=== PATIENT | female | born 1980 | race African-American/Black ===

== ENCOUNTER 2016-10-13 01:54 | Emergency (ER) | payer MEDICAID ==
[~2016-10-13] VITALS: Ht 154.9 cm; Wt 103.0 kg
[2016-10-13] MEDS ORDERED: ALBUTEROL2.5 MG/3 M INH (02:05)
--- NOTE | 2016-10-13 02:16 | Emergency Room Report ---
History of Present Illness General Chief Complaint: Abdominal Pain Source: Patient Present Illness HPI 36-year-old female presents to ED for evaluation of abdominal pain. Patient notes lower abdominal pain x4 days. Pain is pressure-like, 8/10, nonradiating. Patient states she might be . Has not had a period it nearly 2 months. States she did have her tubes tied. No dysuria or hematuria. Denies vaginal bleeding or discharge. Denies nausea or vomiting. No other aggravating relieving factors. Any other associated symptom Allergies: Coded Allergies: CODEINE (Verified Allergy, Unknown, 10/13/16) Patient History Past Medical History: asthma Past Surgical History: none Pertinent Family History: none Social History: Denies: alcohol use, drug use, smoking Last Menstrual Period: Aug Now: No Immunizations: UTD Reviewed Nursing Documentation: PMH: Agreed, PSxH: Agreed Nursing Documentation-PMH Hx Asthma: Yes Review of Systems All Other Systems: negative except mentioned in HPI Physical Exam Vital Signs Date Time Temp Pulse Resp B/P Pulse Ox O2 Delivery O2 Flow Rate FiO2 10/13/16 02:01 98.2 82 16 100/67 98 Room Air Sp02 EP Interpretation: reviewed, normal General Appearance: no apparent distress, alert, GCS 15, non-toxic, obese Head: normocephalic Eyes: bilateral eye PERRL, bilateral eye normal inspection ENT: normal ENT inspection Neck: normal inspection Respiratory: chest non-tender, lungs clear, normal breath sounds, speaking full sentences Cardiovascular #1: regular rate, rhythm, no edema Gastrointestinal: normal bowel sounds, soft, non-distended, no guarding, no rebound, tenderness - suprapubic Rectal: deferred Genitourinary: no CVA tenderness Musculoskeletal: normal inspection Neurologic: alert, oriented x3, responsive, motor strength/tone normal, sensory intact, speech normal Psychiatric: normal inspection Skin: normal inspection Lymphatic: normal inspection Medical Decision Making Diagnostic Impression: Primary Impression: Pelvic pain Additional Impression: Amenorrhea ER Course Hospital Course 36-year-old female presents ED complaining of suprapubic pain, no period X2 months Differential diagnosis includes-cystitis, ectopc , fibroids Clinical course Patient placed on stretcher. After initial history and physical I ordered labs , IV fluids, pelvic US Labs - no leukocytosis, electrolytes ok, LFTs normal, UA unremarkable, Upreg negative pelvic US shows no acute pathology Given improvement in symptoms and lack of acute findings, I believe patient can be safely discharged to home. Patient will followup with [facility] to further evaluate amenorrhea I feel this is a highly complex case requiring extensive working including EKG/ Rhythm strip, Xray/CT/US, Blood/urine lab work, repeat exams while in ED, and administration of strong opiates/narcotics for pain control, admission to hospital or close patient follow up. Diagnosis - amenorrhea, pelvic pain Stable and discharged to home. Followup with PMD. Return to ED if symptoms recur or worsen Labs Test 10/13/16 02:07 10/13/16 02:15 Urine Color Yellow Urine Appearance Clear Urine pH 6.5 (4.5-8.0) Urine Specific [place] 1.020 (1.005-1.035) Urine Protein Negative (NEGATIVE) Urine Glucose (UA) Negative (NEGATIVE) Urine Ketones 1+ (NEGATIVE) Urine Occult Blood 2+ (NEGATIVE) Urine Nitrite Negative (NEGATIVE) Urine Bilirubin Negative (NEGATIVE) Urine Urobilinogen 4 MG/DL (0.0-1.0) Urine Leukocyte Esterase Negative (NEGATIVE) Urine RBC 2-4 /HPF (0 - 2) Urine WBC 0-2 /HPF (0 - 2) Urine Squamous Epithelial Cells Many /LPF (NONE/OCC) Urine Bacteria Few /HPF (NONE) Urine HCG, Qualitative Negative White Blood Count 7.4 K/UL (4.8-10.8) Red Blood Count 4.79 M/UL (4.20-5.40) Hemoglobin 15.0 G/DL (12.0-16.0) Hematocrit 41.8 % (37.0-47.0) Mean Corpuscular Volume 87 FL (80-99) Mean Corpuscular Hemoglobin 31.3 PG (27.0-31.0) Mean Corpuscular Hemoglobin Concent 35.8 G/DL (32.0-36.0) Red Cell Distribution Width 13.9 % (11.6-14.8) Platelet Count 181 K/UL (150-450) Mean Platelet Volume 6.9 FL (6.5-10.1) Neutrophils (%) (Auto) 46.3 % (45.0-75.0) Lymphocytes (%) (Auto) 40.5 % (20.0-45.0) Monocytes (%) (Auto) 9.3 % (1.0-10.0) Eosinophils (%) (Auto) 2.8 % (0.0-3.0) Basophils (%) (Auto) 1.1 % (0.0-2.0) Sodium Level 136 mEQ/L (135-145) Potassium Level 3.7 mEQ/L (3.4-4.9) Chloride Level 97 mEQ/L (98-107) Carbon Dioxide Level 24 mEQ/L (20-30) Anion Gap 15 (5-15) Blood Urea Nitrogen 18 mg/dL (7-23) Creatinine 1.2 mg/dL (0.5-0.9) Estimat Glomerular Filtration Rate > 60 mL/min (>60) Glucose Level 103 mg/dL (74-106) Calcium Level 9.0 mg/dL (8.6-10.2) Total Bilirubin 0.5 mg/dL (0.0-1.2) Aspartate Amino Transf (AST/SGOT) 16 U/L (5-40) Alanine Aminotransferase (ALT/SGPT) 14 U/L (3-33) Alkaline Phosphatase 92 U/L (35-104) Total Protein 6.8 g/dL (6.6-8.7) Albumin 4.0 g/dL (3.5-5.2) Globulin 2.8 g/dL Albumin/Globulin Ratio 1.4 (1.0-2.7) Lipase 52 U/L (< 60) Human Chorionic Gonadotropin, Quant < 1 mIU/mL CT/MRI/US Diagnostic Results CT/MRI/US Diagnostic Results : Imaging Test Ordered: Pelvic US Impression no acute process Last Vital Signs Date Time Temp Pulse Resp B/P Pulse Ox O2 Delivery O2 Flow Rate FiO2 10/13/16 02:01 98.2 82 16 100/67 98 Room Air Status: improved Disposition: HOME, SELF-CARE Condition: Stable TITUS GLEZ M.D. Oct 13, 2016 02:16
[2016-10-13 02:26] VITALS: BP 100/67
[2016-10-13 02:27] LABS: BASOPHILS % (AUTO) 1.1 % (0.0-2.0); EOSINOPHILS % (AUTO) 2.8 % (0.0-3.0); LYMPHOCYTES % (AUTO) 40.5 % (20.0-45.0); MEAN CORPUSCULAR HEMOGLOBIN 31.3 PG (27.0-31.0); MEAN CORPUSCULAR HGB CONC 35.8 G/DL (32.0-36.0); MEAN CORPUSCULAR VOLUME 87 FL (80-99); MEAN PLATELET VOLUME 6.9 FL (6.5-10.1); MONOCYTES % (AUTO) 9.3 % (1.0-10.0); NEUTROPHILS % (AUTO) 46.3 % (45.0-75.0); PLATELET COUNT 181 K/UL (150-450); RED BLOOD COUNT 4.79 M/UL (4.20-5.40); RED CELL DISTRIBUTION WIDTH 13.9 % (11.6-14.8); WHITE BLOOD COUNT 7.4 K/UL (4.8-10.8)
[2016-10-13 02:30] LABS: KETONES,URINE 1+ (NEGATIVE); LEUKOCYTE ESTERASE ,URINE NEGATIVE (NEGATIVE); NITRITE,URINE NEGATIVE (NEGATIVE); PH,URINE 6.5 (4.5-8.0); PROTEIN,URINE NEGATIVE (NEGATIVE); UROBILINOGEN,URINE 4 MG/DL (0.0-1.0)
[2016-10-13 02:42] LABS: ALANINE AMINOTRANSFERASE 14 U/L (3-33); ALBUMIN/GLOBULIN RATIO 1.4 (1.0-2.7); ANION GAP 15 (5-15); ASPARTATE AMINO TRANSFERASE 16 U/L (5-40); CARBON DIOXIDE 24 mEQ/L (20-30); CHLORIDE 97 mEQ/L (98-107); CREATININE 1.2 mg/dL (0.5-0.9); GLOMERULAR FILTRATION RATE > 60 mL/min (>60); HEMOLYSIS 15; LIPASE 52 U/L (< 60); POTASSIUM 3.7 mEQ/L (3.4-4.9); SODIUM 136 mEQ/L (135-145); TOTAL PROTEIN 6.8 g/dL (6.6-8.7)
[2016-10-13 02:43] LABS: APPEARANCE,URINE CLEAR
[2016-10-13 02:45] LABS: BACTERIA,URINE FEW /HPF; SQUAMOUS EPITHELIAL CELL,UR MANY /LPF (NONE/OCC); WBC,URINE 0-2 /HPF (0 - 2)
[2016-10-13 04:38] VITALS: BP 102/77
[2016-10-13 05:00] VITALS: BP 102/77
--- NOTE | 2016-10-14 12:14 | Diagnostic Imaging Report ---
Indication:36-year-old female presenting with lower abdominal pain Technique: Grayscale and duplex Doppler imaging of the pelvis performed utilizing a transabdominal scan and endovaginal scan. Comparison: None Findings: The study is suboptimal. The patient was not scanned well. The uterus is noted and heterogeneous. The endometrium is not seen. There is a cystic focus in the lower uterine segment/cervix probably a cervical nabothian cyst. There is a questionable left ovarian cyst measuring about 1 cm . Recommend further evaluation in 6 weeks. The right ovary was not seen. There is no free fluid. The uterine measurement was only obtained on the transabdominal portion of the scan and measures 6.6 x 3.3 x 3.0 CM. Not confident of the left ovary measurement which was obtained at 6 x 1.3 x 1.7 cm. Impression: Very limited examination. The uterus appears small and heterogeneous and the endometrium not seen. Consider MR for further evaluation. Nonvisualization of the right ovary. Suggestion of a left ovarian cyst, not adequately imaged. Followup ultrasound recommended at 6 weeks
== END 2016-10-13 05:00 | disposition home or self-care (01) ==
LOC: EMR 02:16
DX: R10.2 Pelvic and perineal pain (principal); N91.2 Amenorrhea, unspecified; J45.909 Unspecified asthma, uncomplicated
CPT/HCPCS: 36415; 76856; 80053; 81003; 81025; 83690; 84702; 85025; 99284

== ENCOUNTER 2016-11-19 00:38 | Emergency (ER) | payer MEDICAID ==
[~2016-11-19] VITALS: Ht 157.5 cm; Wt 103.0 kg
[~2016-11-19 00:38] MED LIST: ALBUTEROL2.5 MG/3 M INH
--- NOTE | 2016-11-19 01:26 | Emergency Room Report ---
History of Present Illness General Chief Complaint: Pain Source: Patient Present Illness HPI This is a 36-year-old female with no past medical history. She presents with chief complaint of neck and throat pain. Onset yesterday. Denies any fever chills denies any nausea vomiting. It hurt to swallow but able to swallow. No drooling. There swelling to her neck. No fever or chills. No nausea no vomiting. Pain is 7/10. Allergies: Coded Allergies: CODEINE (Verified Allergy, Unknown, 10/13/16) Patient History Past Medical History: see triage record, old chart reviewed, asthma Past Surgical History: none Pertinent Family History: none Social History: Denies: smoking Last Menstrual Period: 3 WEEKS AGO Now: No Immunizations: other Reviewed Nursing Documentation: PMH: Agreed, PSxH: Agreed Nursing Documentation-PMH Hx Asthma: Yes Review of Systems Eye: Denies: blurred vision, eye pain ENT: Reports: throat pain, throat swelling, Denies: ear pain, nose congestion Respiratory: Denies: cough, shortness of breath Cardiovascular: Denies: chest pain, palpitations Gastrointestinal: Denies: abdominal pain, diarrhea, nausea, vomiting Musculoskeletal: Denies: back pain, joint pain Skin: Denies: rash Neurological: Denies: headache, numbness Endocrine: Denies: increased thirst, increased urine Hematologic/Lymphatic: Denies: easy bruising All Other Systems: negative except mentioned in HPI Physical Exam Vital Signs Date Time Temp Pulse Resp B/P Pulse Ox O2 Delivery O2 Flow Rate FiO2 11/19/16 00:39 97.9 83 18 106/68 98 Room Air vitals normal Sp02 EP Interpretation: reviewed, normal General Appearance: well appearing, no apparent distress, alert Head: normocephalic, atraumatic Eyes: bilateral eye EOMI, bilateral eye PERRL ENT: hearing grossly normal, normal pharynx, tonsillar swelling, pharyngeal erythema, other - no trismus. No peritonsillar abscess. No palpable mass or stone of the salivary ducts. Neck: full range of motion, supple, no meningismus, other - left side neck and submental swelling and tenderness. Respiratory: chest non-tender, lungs clear, normal breath sounds Cardiovascular #1: regular rate, rhythm, no murmur Gastrointestinal: normal bowel sounds, non tender, no mass, no organomegaly, no bruit, non-distended Musculoskeletal: back normal, gait/station normal, normal range of motion Psychiatric: mood/affect normal Skin: warm/dry Medical Decision Making Diagnostic Impression: Primary Impression: Pharyngitis, acute Qualified Codes: J02.9 - Acute pharyngitis, unspecified Additional Impression: UTI (urinary tract infection) Qualified Codes: N30.00 - Acute cystitis without hematuria ER Course Patient presents with sore throat and swelling of her neck. No evidence of peritonsillar abscess or retropharyngeal abscess. No obvious salivary duct stone or infection. She felt better now. We'll discharge home with antibiotics. Lab Results Impression labs unremarkable CT/MRI/US Diagnostic Results CT/MRI/US Diagnostic Results : Imaging Test Ordered: CT soft tissue neck Impression read by radiologist. Negative. Last Vital Signs Date Time Temp Pulse Resp B/P Pulse Ox O2 Delivery O2 Flow Rate FiO2 11/19/16 00:39 97.9 83 18 106/68 98 Room Air Status: improved Disposition: HOME, SELF-CARE Condition: Stable Scripts Ibuprofen* (MOTRIN*) 600 Mg Tablet 600 MG ORAL THREE TIMES A DAY, #30 TAB 0 Refills Prov: THU DOMÍNGUEZ M.D. 11/19/16 Amoxicillin* (AMOXIL*) 500 Mg Capsule 500 MG ORAL THREE TIMES A DAY, #21 CAP Prov: THU DOMÍNGUEZ M.D. 11/19/16 Referrals: NOT CHOSEN [facility]/,REFERRING (PCP) Additional Instructions: Followup with your DrSharron in 3-5 days. Increase fluids. Return if symptom worsen. THU DOMÍNGUEZ M.D. Nov 19, 2016 01:26
[2016-11-19] MEDS ORDERED: cefTRIAXone 1 GM in NS 55 ML IVPB ONE (01:30)
[2016-11-19] MEDS ORDERED: Ketorolac 30mg Inj IV ONE (01:30)
[2016-11-19 01:51] LABS: BASOPHILS % (AUTO) 1.4 % (0.0-2.0); LYMPHOCYTES % (AUTO) 42.2 % (20.0-45.0); MEAN CORPUSCULAR HEMOGLOBIN 30.7 PG (27.0-31.0); MEAN CORPUSCULAR HGB CONC 34.8 G/DL (32.0-36.0); MEAN CORPUSCULAR VOLUME 88 FL (80-99); MEAN PLATELET VOLUME 6.9 FL (6.5-10.1); MONOCYTES % (AUTO) 8.4 % (1.0-10.0); NEUTROPHILS % (AUTO) 44.9 % (45.0-75.0); PLATELET COUNT 209 K/UL (150-450); RED BLOOD COUNT 5.22 M/UL (4.20-5.40); RED CELL DISTRIBUTION WIDTH 13.8 % (11.6-14.8); WHITE BLOOD COUNT 7.8 K/UL (4.8-10.8)
[2016-11-19 01:57] LABS: APPEARANCE,URINE CLEAR; KETONES,URINE NEGATIVE (NEGATIVE); NITRITE,URINE NEGATIVE (NEGATIVE); PH,URINE 6 (4.5-8.0); PROTEIN,URINE NEGATIVE (NEGATIVE); UROBILINOGEN,URINE 1 MG/DL (0.0-1.0)
[2016-11-19 02:06] LABS: LEUKOCYTE ESTERASE ,URINE 1+ (NEGATIVE); SQUAMOUS EPITHELIAL CELL,UR MANY /LPF (NONE/OCC); WBC,URINE 15-20 /HPF (0 - 2)
[2016-11-19 02:06] LABS: ANION GAP 10 (5-15); CALCIUM 9.1 mg/dL (8.6-10.2); CARBON DIOXIDE 28 mEQ/L (20-30); CHLORIDE 102 mEQ/L (98-107); CREATININE 1.1 mg/dL (0.5-0.9); GLOMERULAR FILTRATION RATE > 60 mL/min (>60); HEMOLYSIS 3; POTASSIUM 4.2 mEQ/L (3.4-4.9); SODIUM 140 mEQ/L (135-145)
[2016-11-19 02:07] LABS: BACTERIA,URINE FEW /HPF; MUCUS,URINE MANY /LPF (NONE/OCC)
[2016-11-19 03:00] VITALS: BP 112/65
[2016-11-19 03:55] VITALS: BP 112/65
[2016-11-19] MEDS ORDERED: AMOXICILLIN500 MG ORAL (03:56)
[2016-11-19] MEDS ORDERED: IBUPROFEN600 MG ORAL (03:56)
--- NOTE | 2016-11-20 08:29 | Diagnostic Imaging Report ---
Indication: PAIN Technique: IV administration nonionic contrast. Spiral acquisitions obtained through the . Multiplanar reconstructions were generated. Total dose length product 385 mGycm. CTDIvol(s) 19 mGy. Radiation dose was minimized using automated exposure control Comparison: None Findings: Exam is somewhat limited as the lowest slices do not reach the jeana. The adenoids are prominent. The nasopharynx, oropharynx, hypopharynx, larynx are unremarkable. No significant prevertebral soft tissue swelling. No focal collections to suggest abscess. No cervical mass or adenopathy. The salivary glands are unremarkable. The parapharyngeal spaces are symmetric and clear. The thyroid is unremarkable. The included sinuses are unremarkable. The bones are unremarkable. The dentition is intact. The bilateral proximal internal carotid arteries are unusually tortuous. Impression: Prominent adenoids, nonspecific No evidence of abscess Somewhat limited exam, as described This agrees with the preliminary interpretation provided overnight by [facility] teleradiology service. The CT scanner at [facility] is accredited by the [employer] and the scans are performed using protocols designed to limit radiation exposure to as low as reasonably achievable to attain images of sufficient resolution adequate for diagnostic evaluation.
== END 2016-11-19 04:00 | disposition home or self-care (01) ==
LOC: EMR 01:21
DX: J02.9 Acute pharyngitis, unspecified (principal); N30.00 Acute cystitis without hematuria; M54.2 Cervicalgia; Z88.6 Allergy status to analgesic agent
CPT/HCPCS: 36415; 70491; 80048; 81001; 81025; 85025; 85610; 85730; 87086; 87181; 96374; 96375; 99284; J0696; J1885; Q9967

== ENCOUNTER 2016-12-20 02:01 | Emergency (ER) | payer MEDICAID ==
[~2016-12-20] VITALS: Ht 154.9 cm; Wt 96.6 kg
[~2016-12-20 02:01] MED LIST changes: +AMOXICILLIN500 MG ORAL; +IBUPROFEN600 MG ORAL
[2016-12-20] MEDS ORDERED: IBUPROFEN600 MG ORAL (02:25)
[2016-12-20] MEDS ORDERED: Ketorolac 60mg Inj IM ONE (02:30)
[2016-12-20 03:14] VITALS: BP 96/67
--- NOTE | 2016-12-24 12:50 | Emergency Room Report ---
History of Present Illness General Chief Complaint: Pain Source: Patient Present Illness HPI Patient is a 36-year-old female who presented after increased left-sided breast pain. The patient gradual onset of symptoms over 1 day. Patient reported having sharp pain with palpation of breath. Patient stated she noticed a breast lump. Patient denied any fever. She had irregular menses. Patient denied being . She had not been having any other locations of pain. She denied taking medications. She denied any nipple discharge or weight loss. She denies prior history of breast cancer. Allergies: Coded Allergies: CODEINE (Verified Allergy, Unknown, 10/13/16) Patient History Past Medical History: see triage record Last Menstrual Period: november Reviewed Nursing Documentation: PMH: Agreed, PSxH: Agreed Nursing Documentation-PMH Hx Asthma: Yes Review of Systems All Other Systems: negative except mentioned in HPI Physical Exam Vital Signs Date Time Temp Pulse Resp B/P Pulse Ox O2 Delivery O2 Flow Rate FiO2 12/20/16 02:03 98.2 116 18 96/67 99 Room Air Sp02 EP Interpretation: reviewed, normal General Appearance: normal inspection, well appearing, no apparent distress, alert, GCS 15 Head: normocephalic, atraumatic ENT: normal ENT inspection, hearing grossly normal, normal voice Neck: normal inspection, full range of motion, supple, no bony tend Respiratory: normal inspection, lungs clear, normal breath sounds, no respiratory distress, no retraction, no wheezing, other - left breast with large mass without fluctuance, no nipple discharge, no skin changes. Cardiovascular #1: regular rate, rhythm, no edema Gastrointestinal: normal inspection, normal bowel sounds, non tender, soft, no guarding, no hernia Genitourinary: no CVA tenderness Musculoskeletal: normal inspection, back normal, normal range of motion Neurologic: normal inspection, alert, oriented x3, responsive, data clerk III-XII nml as tested, speech normal Psychiatric: normal inspection, judgement/insight normal, mood/affect normal Skin: normal inspection, normal color, no rash Medical Decision Making Diagnostic Impression: Primary Impression: Breast lesion ER Course Patient presented for breast mass. Differential diagnosis included but not limited to breast cancer, fibrocystic changes, adenoma, among others. The patient appears to have a breast lesion. It is unclear what the etiology is. The patient was advised followup with her primary care physician for mammography and further imaging studies. There does not appear to be any abscess requiring immediate treatment. The patient is advised to follow up with primary care doctor in 1-2 days. Patient is advised to return if any worsening condition or if any changes in status that are concerning. Labs Test 12/20/16 02:30 Urine HCG, Qualitative Negative Last Vital Signs Date Time Temp Pulse Resp B/P Pulse Ox O2 Delivery O2 Flow Rate FiO2 12/20/16 03:14 98.2 89 18 96/67 99 Room Air Status: improved Disposition: HOME, SELF-CARE Condition: Stable Scripts Ibuprofen* (MOTRIN*) 600 Mg Tablet 600 MG ORAL THREE TIMES A DAY, #30 TAB 0 Refills Prov: Avi Roblero 12/20/16 Referrals: [facility]ERR[facility] Patient Instructions: Breast Tenderness Avi Roblero Dec 24, 2016 12:49
== END 2016-12-20 03:15 | disposition home or self-care (01) ==
LOC: EMR 02:56
DX: N63 Unspecified lump in breast (principal); J45.909 Unspecified asthma, uncomplicated; Z88.6 Allergy status to analgesic agent
CPT/HCPCS: 81025; 96372; 99283

== ENCOUNTER 2017-05-16 08:41 | Emergency (ER) | payer MEDICAID ==
[~2017-05-16] VITALS: Ht 154.9 cm; Wt 90.7 kg
[2017-05-16] MEDS ORDERED: IBUPROFEN600 MG ORAL (09:03)
[2017-05-16] MEDS ORDERED: BACTRIM DS TAB1 EAC1 ORAL (09:03)
[2017-05-16] MEDS ORDERED: KEFLEX500 MG ORAL (09:03)
[2017-05-16 09:14] VITALS: BP 93/64
--- NOTE | 2017-05-16 10:22 | Emergency Room Report ---
History of Present Illness General Chief Complaint: Skin Rash/Abscess Source: Patient Present Illness HPI 36-year-old female presents ED for evaluation. States for the last 2 days she states there was a "spider bite" on her right hip. States that she saw the spider. Notes pain and swelling to the right hip. 8/ 10, throbbing, radiating down the right leg. Denies fevers or chills. Denies any discharge. No other aggravating relieving factors. Denies any other associated symptoms. Allergies: Coded Allergies: CODEINE (Verified Allergy, Unknown, 10/13/16) Patient History Past Medical History: asthma, psych hx Past Surgical History: none Pertinent Family History: none Social History: Denies: smoking, alcohol use, drug use Last Menstrual Period: 03/22/17 Now: No : 2 Para: 2 Immunizations: UTD Reviewed Nursing Documentation: PMH: Agreed, PSxH: Agreed Nursing Documentation-PMH Past Medical History: No History, Except For Hx Asthma: Yes History Of Psychiatric Problem: Yes - schizo bipolar Review of Systems All Other Systems: negative except mentioned in HPI Physical Exam Vital Signs Date Time Temp Pulse Resp B/P (MAP) Pulse Ox O2 Delivery O2 Flow Rate FiO2 05/16/17 08:45 98.1 84 18 105/70 100 05/16/17 09:14 Room Air Sp02 EP Interpretation: reviewed, normal General Appearance: no apparent distress, alert, GCS 15, non-toxic, obese Head: normocephalic, atraumatic Eyes: bilateral eye normal inspection, bilateral eye PERRL ENT: hearing grossly normal, normal pharynx, no angioedema, normal voice Neck: full range of motion, supple/symm/no masses Respiratory: chest non-tender, lungs clear, normal breath sounds, speaking full sentences Cardiovascular #1: regular rate, rhythm, no edema Cardiovascular #2: 2+ carotid (R), 2+ carotid (L), 2+ radial (R), 2+ radial (L) , 2+ dorsalis pedis (R), 2+ dorsalis pedis (L) Gastrointestinal: normal bowel sounds, non tender, soft, non-distended, no guarding, no rebound Rectal: deferred Genitourinary: normal inspection, no CVA tenderness Musculoskeletal: back normal, gait/station normal, normal range of motion, non- tender Neurologic: alert, oriented x3, responsive, motor strength/tone normal, sensory intact, speech normal Psychiatric: judgement/insight normal, memory normal, mood/affect normal, no suicidal/homicidal ideation Reflexes: 3+ bicep (R), 3+ bicep (L), 3+ tricep (R), 3+ tricep (L), 3+ knee (R) , 3+ knee (L) Skin: normal color, warm/dry, well hydrated, other - 1x1cm area of central necrosis. surrounding erythema/induration. no fluctuance or discharge Lymphatic: no adenopathy Medical Decision Making Diagnostic Impression: Primary Impression: Insect bite Qualified Codes: W57.XXXA - Bitten or stung by nonvenomous insect and other nonvenomous arthropods, initial encounter ER Course Hospital Course 36-year-old female presents to ED with redness, swelling to right hip Differential diagnoses include: Cellulitis, dermatitis, insect bite, abscess Clinical course Patient placed on stretcher. After initial history, physical exam reveals a female in no acute distress. On exam there is an area of central necrosis to the right hip. With surrounding erythema and induration. No fluctuance or discharge. We will treat with warm compresses and antibiotics. Patient appears nontoxic, afebrile with stable vitals. Diagnosis - insect bite stable and discharged to home with prescription for tylenol, bactrim, Keflex. Warm compresses. Instructed to followup with PMD. Instructed return to ED if symptoms recur or worsen Last Vital Signs Date Time Temp Pulse Resp B/P (MAP) Pulse Ox O2 Delivery O2 Flow Rate FiO2 05/16/17 09:14 98.4 95 15 93/64 99 Room Air Status: improved Disposition: HOME, SELF-CARE Condition: Stable Scripts Ibuprofen* (MOTRIN*) 600 Mg Tablet 600 MG ORAL Q8H Y for For Pain, #30 TAB 0 Refills Prov: TITUS GLEZ M.D. 05/16/17 Trimethoprim/Sulfamethoxazole 160/800* (BACTRIM DS TABLET*) 1 Each Tablet 1 TAB ORAL Q12H, #14 TAB 0 Refills Prov: TITUS GLEZ M.D. 05/16/17 Cephalexin* (KEFLEX*) 500 Mg Capsule 500 MG ORAL Q6H, #28 CAP 0 Refills Prov: TITUS GLEZ M.D. 05/16/17 Referrals: [facility] (PCP) Patient Instructions: Insect Bite, [id number] TITUS GLEZ M.D. May 16, 2017 10:22
== END 2017-05-16 09:14 | disposition home or self-care (01) ==
LOC: EMR 09:02
DX: T63.301A Toxic effect of unspecified spider venom, accidental (unintentional), initial encounter (principal); R22.41 Localized swelling, mass and lump, right lower limb; W57.XXXA Bitten or stung by nonvenomous insect and other nonvenomous arthropods, initial encounter; Y93.9 Activity, unspecified; Y99.9 Unspecified external cause status; R21 Rash and other nonspecific skin eruption
CPT/HCPCS: 99284